=== PATIENT | female | born 1995 | race Caucasian/White ===

== ENCOUNTER → 2019-03-17 | Outpatient (CLI) | payer OTHER ==
[~2019-03-17] MED LIST: MULTI-VITAMIN1 EACH PO; ORILISSA PO; norethindrone PO
--- NOTE | 2019-03-17 09:26 | Diagnostic Imaging Report ---
TECHNIQUE: Magnetic resonance imaging of the LEFT ANKLE was performed WITHOUT injected contrast. COMPARISON: None available. HISTORY: Ankle pain, history of clubfoot FINDINGS: LIGAMENTS: Medial Complex: Deltoid intact. Lateral Complex: Inferior tibiofibular ligaments intact. Attenuation of the anterior talofibular ligament. Calcaneofibular ligament intact. TENDONS: Medial: Attenuation of the posterior tibial tendon. Flexor tendons otherwise intact. Lateral: Peroneal tendons intact. Anterior: Anterior tibial and extensor tendons intact. Achilles: Achilles tendon with irregular morphology and peritendinous edema. BONES: Subchondral edema within the hindfoot. No acute fracture or osteonecrosis. JOINTS: Cartilage: Probable cartilage loss within the hindfoot. Other: Fluid within the joints is within physiologic limits. SOFT TISSUES: Otherwise, unremarkable. IMPRESSION: Abnormal morphology of the Achilles tendon likely sequela of prior partial tear with peritendinous edema. Hindfoot marrow edema likely from altered biomechanics. Signed by: Dr. Alphonso Jordan M.D. on 03/17/2019 9:22 AM
--- NOTE | 2019-04-08 08:55 | Operative Report ---
DATE OF PROCEDURE: SURGEON: Shannan Gordon DPM DAMPER FITTER SURGEON: Vandana Bansal DPM PREOPERATIVE DIAGNOSES: 1. Gastrocnemius equinus, left. 2. Achilles tendinosis, left. POSTOPERATIVE DIAGNOSES: 1. Gastrocnemius equinus, left. 2. Achilles tendinosis, left. PLANNED PROCEDURES: 1. Left gastroc recession. 2. Left Achilles tendon debridement with repair. DAMPER FITTER: Vandana Bansal DPM. ANESTHESIA: General with a postoperative block consisting of 20 mL of 0.5% Marcaine plain. HEMOSTASIS: Pneumatic thigh tourniquet set at 350 mmHg for a total time approximately 30 minutes. MATERIALS: 3-0 Vicryl and 3-0 nylon. ESTIMATED BLOOD LOSS: Less than 10 mL. PATHOLOGY: None. PROCEDURE NOTE: The patient was seen in the preoperative waiting room with the correct procedure and site was identified. The patient was brought to the operating room where general anesthesia was initiated and a well-padded pneumatic tourniquet was placed about the patient's left thigh. The patient was then placed in the prone position on the operating table. The left leg was then scrubbed, prepped, and draped in the usual aseptic manner. The left foot, ankle, and leg was exsanguinated with an Esmarch bandage and the pneumatic thigh tourniquet was inflated to 350 mmHg for a total time of approximately 30 minutes. Attention was directed to the left posterior aspect of the calf just lateral to the gastroc and the aponeurosis. The incision was carried through subcutaneous tissue them from deep or underlying structures. All vital neurovascular structures were identified and retracted medially and laterally. All bleeders were cauterized or ligated as deemed necessary. Incision was carried down to the level of the paratenon, which was entered to allow for good visualization of the aponeurosis. It was noted to be narrow as well as thin compared to the contralateral extremity. Utilizing a #15 blade, a unkkmz-lz-ktsudy type cut were made in the gastroc recession. The foot was then dorsiflexed to allow for approximately 2 to 3 mm gapping within the tendon. The tendon was then reapproximated with simple interrupted sutures of 3-0 Vicryl. The subcutaneous fat and the peritoneal visit were closed in the same layer using a running simple interrupted suture with 3-0 Vicryl. The skin was closed using simple interlocking stitch with 3-0 nylon. Next, attention was directed to the posterior aspect of the patient's Achilles tendon insertion site where a 4 cm linear incision made directly over the bulbous area of the posterior aspect of the Achilles tendon. Incision was carried through subcutaneous tissue them from deep or underlying structures. All vital and neurovascular structures were identified and retracted medially and laterally. All bleeders were cauterized or ligated as deemed necessary. The paratenon was incised as well. The Achilles tendon was reflected up into allow for good visualization of the Achilles tendon scar tissue which was debrided and passed off to the back table. The wound was then copiously irrigated with sterile saline and deep tissue were reapproximated with 3-0 Vicryl. The skin was closed using a simple interrupted suture with 3-0 nylon. All incision sites were dressed with Adaptic, 4x4s, posterior splint, Webril, 4- inch Inderjit wrap, and a 6-inch Inderjit wrap. The patient tolerated the procedure and anesthesia well. The patient was transferred to the postop recovery room with vital signs stable and vascular status intact. The patient was monitored there for a short period time before being sent home with the following written and oral instructions. 1. Keep the dressing clean, dry, and intact. 2. The patient has remained nonweightbearing to avoid any ambulation until being seen in the office. 3. The patient was given the office number to contact us if any problems should arise. Dictated by Vandana Bansal DPM S MULU Cazares (Charley)/MALAIKAL /[id number] LEWIS
== END ==
LOC: MRI 07:39
PROVIDERS: ATTEND Podiatrist Foot & Ankle Surgery
DX: M76.62 Achilles tendinitis, left leg (principal)

== ENCOUNTER → 2019-04-08 | Day surgery (SDC) | payer OTHER ==
[~2019-04-08] MED LIST changes: +ACETAMINOPHEN 1000 MG/100 ML IV ONE; +BUPIVACAINE HCL 0.5% INJ 30 ML VIAL INJ ONE; +CEFAZOLIN SOD 1 GM/NS 50ML 50 ML IV ONE; +DEXAMETHASONE SOD PHOS INJ 4 MG/ML VIAL ONE; +FAMOTIDINE 20 MG/2 ML VIAL IV ONE; +FENTANYL CITRATE/PF 100MCG/2 ML INJ ONE; +KETOROLAC TROMETHAMINE 30 MG/ML VIAL ONE; +MIDAZOLAM HCL 2 MG/2 ML VIAL ONE; +ONDANSETRON HCL INJ 2MG/ML 2ML 2 MG/ML VIAL ONE; +PROPOFOL IV EMULSION 10 MG/ML 20 ML VIAL ONE; +SCOPOLAMINE 1.5 MG PATCH ONE; +SEVOFLURANE INHAL SOLN 250 ML PEN BTL ONE; +SUGAMMADEX SODIUM 200 MG/2 ML VIAL IV ONE
--- OUTSIDE RECORDS SUMMARY | 2019-04-08 05:13 | XMS REPORT | Encounter Summary ---
Author Organization Unknown Address [address] [place] [address] Phone [phone] Reason for Visit Medical Complaint Instructions 1. Acute otitis media amoxicillin 875 mg-potassium clavulanate 125 mg tablet 2. Perforation of tympanic membrane perforated eardrum: care instructions fluticasone 50 mcg/actuation nasal spray,suspension 3. Pain in throat sore throat: care instructions rapid strep group A, throat Discussion Note Pt in NAD, understands all information provided Plan of Care Patient Instructions Pt will take abx as prescribed and keep ears dry avoiding Q-tip use. Please seek care (PCP, Urgent Care, ER) or return to [facility] if symptoms get worse or do not resolve in 1 week. Reminders Provider Appointments None recorded. Lab Rapid Strep Group a, Throat 12/22/2016 [facility] Referral None recorded. Procedures None recorded. Surgeries None recorded. Imaging None recorded. Medications Name Start Date amoxicillin 500 mg capsule amoxicillin 875 mg-potassium clavulanate 125 mg tablet Take 1 tablet every 12 hours by oral route for 10 days. Duraflu 60 mg-20 mg-200 mg-500 mg tablet TK 1 T PO QID FOR 7 DAYS Fioricet fluconazole 150 mg tablet fluticasone 50 mcg/actuation nasal spray,suspension [place] 1 spray twice a day by intranasal route as directed for 14 days. hydrocodone 5 mg-acetaminophen 325 mg tablet ibuprofen 800 mg tablet Microgestin FE /20 (28) 1 mg-20 mcg (21)/75 mg (7) tablet TK 1 T PO QD NuvaRing 0.12 mg -0.015 mg/24 hr vaginal ondansetron 4 mg disintegrating tablet topiramate 50 mg tablet tramadol 50 mg tablet Medications Administered None recorded. Vitals Height Weight BMI Blood Pressure 5 ft 7 in 126 lbs 19.7 100/60 Lab Results Date Name Specimen Result Interpretation Description Value Range Status Address Rapid Strep Group a, Throat Result negative [facility]: [address] [place] [address] Swab Location Left and Right tonsillar pillars [facility]: [facility] Allergies Code Code System Name Reaction Severity Onset NKDA Problems Name Status Onset Date Source Acute Sinusitis Active Encounter Acute Pharyngitis Active Encounter Allergic Rhinitis Active Encounter Influenza-like Symptoms Active Encounter Procedures None recorded. Vaccine List Vaccine Type HPV, quadrivalent 09/06/2012 11/04/2012 02/04/2013 Tdap 09/06/2009 Social History Smoking Status Never Smoker Past Encounters 12/22/2016 Acute Otitis Media; Perforation of Tympanic Membrane; Pain in Throat Ebenezer Owen [employer]OR-C: [address] [facility], [place] [address], Ph. [phone] History of Present Illness Throat-Oral Complaint Reported By: Patient HPI: Location: throat. Quality: sore throat, productive cough, congested. Severity: mild. Duration: 2 days. Context: no sick contacts, no foreign travel, non- smoker. Associated Symptoms: no fever, no headache, no body aches, no sputum production, no shortness of breath, no wheezing, no change in number of pillows needed to sleep at night, no sweats, no significant weight gain, no significant weight loss, no morning cough, no vomiting, no diarrhea, no rash, no nausea, sore throat Ear Complaint Reported By: Patient HPI: Location: right. Quality: throbbing. Severity: intermittent. Duration: started one week ago. Onset/Timing: still present. Context: no sick contacts, no recent swimming/water in ear, no exposure to second hand smoke, no head trauma, not grinding teeth, no recent air travel. Modifying factors: does not hurt to lie on, or pull on ear, does not hurt to chew. Associated Symptoms: no discharge from the ears, no popping noise in the ears, no ringing in the ears, no fever, no chills, no dizziness, no vertigo, no headache, no muscle aches, nose/sinus problems, earache Review of Systems:ROS as noted in the HPI Review of Systems Basic Reported By: Patient Physical Exam Adult Basic, Adult Female Complete, 14-21 Yr Females Reported By: Patient Constitutional: General Appearance: healthy-appearing, well-nourished, well-developed. Level of Distress: NAD. Ambulation: ambulating normally Psychiatric: Mental Status: active and alert, normal affect, normal mood. Orientation: to time, to place, to person Wem-Crpl-Vtzhl-Throat: Ears: no lesions on external ear, no outer ear tenderness, EACs clear, TM erythematous, TM bulging, TM perforated, TM immobile. Hearing: no hearing loss. Nose: no lesions on external nose, nares patent, no septal deviation, nasal passages clear, no sinus tenderness, nasal discharge--rhinorrhea, post nasal drip. Oropharynx: erythema, tonsils enlarged 3+ Lungs: Respiratory effort: no dyspnea, no tachypnea, no use of accessory muscles, no intercostal retractions. Auscultation: breath sounds normal, clear to auscultation, no wheezing, no rales/crackles, no rhonchi, no retractions Cardiovascular: Heart Auscultation: RRR, no murmurs. Apical impulse: not displaced
--- OUTSIDE RECORDS SUMMARY | 2019-04-08 05:13 | XMS REPORT | Encounter Summary ---
Author Organization Unknown Address [address] [place] [address] Phone [phone] Reason for Visit Medical Complaint Instructions 1. Acute pharyngitis sore throat: care instructions 2. Influenza-like symptoms rapid strep group A, throat Duraflu 60 mg-20 mg-200 mg-500 mg tablet influenza (flu): care instructions Discussion Note I provided /reviewed [facility] handout Plan of Care Patient Instructions *Stay home and limit contact with others for the next 5 days. *Monitor temperature regularly for the next few days. *Practice good hand hygiene and wear a face mask if you must go out in public. *Drink plenty of fluids and get lots of rest. *May use acetaminophen (ex: Tylenol) or ibuprofen (ex: Motrin) as indicated on package for pain, bodyaches, and/or fever. *Do not use any products khop-fdw-bisqroy that contain acetaminophen (Tylenol) as the Duraflu tabs already have acetaminophen in them. *Take medication(s) as prescribed for the indicated length of time. If no improvement in 3-5 days, or if you develop new or worsening symptoms, follow up with your usual healthcare provider or go to the nearest emergency or urgent care center if after hours or on weekends. Reminders Provider Appointments None recorded. Lab Rapid Strep Group a, Throat 05/08/2016 [facility] Referral None recorded. Procedures None recorded. Surgeries None recorded. Imaging None recorded. Medications Name Start Date Duraflu 60 mg-20 mg-200 mg-500 mg tablet Take 1 tablet 4 times a day by oral route for 7 days. Fioricet Medications Administered None recorded. Vitals Height Weight BMI Blood Pressure 5 ft 7 in 130 lbs 20.4 102/68 Lab Results None recorded. Allergies Name Reaction Severity Onset NKDA Problems Name Status Onset Date Source Acute Sinusitis Active Encounter Acute Pharyngitis Active Encounter Allergic Rhinitis Active Encounter Influenza-like Symptoms Active Encounter Procedures None recorded. Vaccine List Vaccine Type HPV, quadrivalent 09/06/2012 11/04/2012 02/04/2013 Tdap 09/06/2009 Social History Smoking Status Never Smoker Past Encounters 05/08/2016 Acute Pharyngitis; Influenza-like Symptoms Arthur SandhuRAMIN stricklandP: [address] [place] [address], Ph. History of Present Illness Jrklv-Suvzegywih-Pxeprls Reported By: Patient HPI: Location: head/sinuses. Quality: sore throat, dry cough. Duration: 3days. Severity: moderate. Onset/Timing: gradual. Context: no sick contacts, no foreign travel, non-smoker. Modifying factors: OTC medication. Associated Symptoms: no sputum production, no shortness of breath, no wheezing, no change in number of pillows needed to sleep at night, no sweats, no significant weight gain, no significant weight loss, no vomiting, no diarrhea, no rash, no nausea, morning cough, sore throat; Chills Review of Systems:ROS as noted in the HPI Review of Systems Basic Reported By: Patient Physical Exam Adult Basic, Adult Female Complete, 14-21 Yr Females Constitutional: General Appearance: healthy-appearing, well-nourished, well-developed. Level of Distress: NAD. Ambulation: ambulating normally Psychiatric: Mental Status: active and alert, normal affect, normal mood. Orientation: to time, to place, to person Utf-Cqlj-Wfkbh-Throat: Ears: no lesions on external ear, no outer ear tenderness, EACs clear, TMs clear, TM mobility normal. Hearing: no hearing loss. Nose: no lesions on external nose, nares patent, no septal deviation, nasal passages clear, no sinus tenderness, no nasal discharge. Lips, Teeth, and Gums: no mouth or lip ulcers, no bleeding gums, normal dentition. Oropharynx: moist mucous membranes, no erythema, no exudates, tonsils not enlarged Lungs: Respiratory effort: no dyspnea, no tachypnea, no use of accessory muscles, no intercostal retractions. Auscultation: breath sounds normal, clear to auscultation, no wheezing, no rales/crackles, no rhonchi, no retractions Cardiovascular: Heart Auscultation: RRR, no murmurs, no gallops, no rub, normal femoral pulse
--- OUTSIDE RECORDS SUMMARY | 2019-04-08 05:13 | XMS REPORT | Encounter Summary ---
Author Organization Unknown Address [address] [place] [address] Phone [phone] Reason for Visit Medical Complaint Instructions 1. Acute sinusitis rapid strep group A, throat sinusitis: care instructions fluticasone 50 mcg/actuation nasal spray,suspension Bromfed DM 2 mg-30 mg-10 mg/5 mL syrup Discussion Note: None recorded. Plan of Care Patient Instructions Drink plenty of fluids. Get lots of rest and appropriate sleep. Inhaling steam may help to ease congestion of the sinuses. Temporary use of an hfia-yjh-zkcpnhx nasal spray may help relieve congestion, but these should not be used for more than 3 days at a time. See your doctor if your symptoms last more than a few days. Antibiotics may be prescribed if bacterial sinusitis is suspected. It is important to take the full course of antibiotics as prescribed. Do not skip doses or stop taking the medication when you begin to feel better. Seek medical attention immediately if you develop a high fever, stiff neck, severe headache, tender swelling near the eyes, or changes in your mental status such as confusion or delirium. Reminders Provider Appointments None recorded. Lab Rapid Strep Group a, Throat 06/10/2017 [facility] Referral None recorded. Procedures None recorded. Surgeries None recorded. Imaging None recorded. Medications Name Start Date amoxicillin 500 mg capsule amoxicillin 875 mg-potassium clavulanate 125 mg tablet TK 1 T PO Q 12 H Bromfed DM 2 mg-30 mg-10 mg/5 mL syrup Take 10 mL every 4-6 hours by oral route as needed for 3 days. Duraflu 60 mg-20 mg-200 mg-500 mg tablet TK 1 T PO QID FOR 7 DAYS estradiol 2 mg tablet fluconazole 150 mg tablet fluticasone 50 mcg/actuation nasal spray,suspension [place] 1 spray twice a day by intranasal route as directed for 7 days. ibuprofen 800 mg tablet Menveo L-L-L-W-135-Dip (PF) 10 mcg-5 mcg/0.5 mL intramuscular kit ADM 0.5ML IM UTD Microgestin FE 1/20 (28) 1 mg-20 mcg (21)/75 mg (7) tablet TK 1 T PO QD Nexplanon 68 mg subdermal implant norethindrone acetate 5 mg tablet NuvaRing 0.12 mg -0.015 mg/24 hr vaginal ondansetron 4 mg disintegrating tablet Zovia 1/50E (28) 1 mg-50 mcg tablet TK 1 T PO D Medications Administered None recorded. Vitals Height Weight BMI Blood Pressure 5 ft 7 in 130 lbs 20.4 kg/m2 128/91 mm[Hg] Lab Results None recorded. Allergies Code Code System Name Reaction Severity Status Onset NKDA Problems Name Status Onset Date Source Acute Sinusitis Active Encounter Acute Pharyngitis Active Encounter Allergic Rhinitis Active Encounter Influenza-like Symptoms Active Encounter Procedures None recorded. Vaccine List Vaccine Type HPV, quadrivalent 09/07/2012 11/05/2012 02/05/2013 Tdap 09/07/2009 Social History Smoking Status Never Smoker Past Encounters 06/10/2017 Acute Sinusitis RAMIN GaytanP-C: [address] [place] [address], Ph. History of Present Illness Tnrhd-Xsfbugsftu-Mfgpbga Reported By: Patient HPI: Location: head/sinuses. Quality: sore throat. Duration: 5days. Severity: moderate. Onset/Timing: sudden. Context: no foreign travel, non-smoker, sick contact. Modifying factors: OTC medication. Associated Symptoms: no vomiting, no diarrhea, no fever, headache Review of Systems Basic Reported By: Patient Constitutional: Constitutional: no fever Eyes: Eyes: no eye complaints Rwra-Ivit-Oxdxl-Throat: Ears: no ear complaints. Nose: nose/sinus problems. Mouth/Throat: sore throat Cardiovascular: Cardiovascular: no chest pain, no shortness of breath Respiratory: Respiratory: no cough, no wheezing Gastrointestinal: Gastrointestinal: no abdominal pain, no vomiting / diarrhea Genitourinary: Genitourinary: no urinary complaints, no discharge Musculoskeletal: Musculoskeletal: no muscle aches, no muscle weakness Neurologic: Neurologic: headache Physical Exam Adult Basic, Adult Female Complete, 14-21 Yr Females Reported By: Patient Constitutional: General Appearance: healthy-appearing, well-nourished, well-developed. Level of Distress: NAD. Ambulation: ambulating normally Psychiatric: Mental Status: active and alert, normal affect, normal mood. Orientation: to time, to place, to person Fky-Bhft-Rspda-Throat: Ears: no lesions on external ear, no outer ear tenderness, EACs clear, TMs clear. Nose: no lesions on external nose, nares patent, no septal deviation, nasal passages clear, sinus tenderness, post nasal drip. Oropharynx: moist mucous membranes, no erythema, no exudates, tonsils not enlarged Neck: Lymph Nodes: no cervical LAD, no supraclavicular LAD, no axillary LAD, no inguinal LAD Lungs: Respiratory effort: no dyspnea, no tachypnea, no use of accessory muscles, no intercostal retractions. Auscultation: breath sounds normal, clear to auscultation, no wheezing, no rales/crackles, no rhonchi, no retractions Cardiovascular: Heart Auscultation: RRR, no murmurs, no gallops, no rub, normal femoral pulse. Rate and rhythm: regular Abdomen: Bowel Sounds: normal. Inspection and Palpation: soft, non-distended, no tenderness, no guarding, no rebound tenderness, no masses, no CVA tenderness. Liver: non-tender, no hepatomegaly. Spleen: non-tender, no splenomegaly
--- OUTSIDE RECORDS SUMMARY | 2019-04-08 05:13 | XMS REPORT | Continuity of Care Document ---
Author Author [facility] Address Unknown Phone Unavailable Care Team Providers Care Storage Administrator Name Role Phone [employer] Unavailable Unavailable Problems Problem Status Onset Date Classification Date Reported Comments Source Acute sinusitis 06/10/2017 Diagnosis 06/10/2017 [facility] Acute otitis media 12/22/2016 Diagnosis 12/22/2016 [facility] Perforation of tympanic membrane 12/22/2016 Diagnosis 12/22/2016 [facility] Pain in throat 12/22/2016 Diagnosis 12/22/2016 [facility] Acute pharyngitis 05/08/2016 Diagnosis 05/08/2016 [facility] Influenza-like symptoms 05/08/2016 Diagnosis 05/08/2016 [facility] Acute Sinusitis Problem 06/10/2017 [facility] Acute Pharyngitis Problem 06/10/2017 [facility] Allergic Rhinitis Problem 06/10/2017 [facility] Influenza-like Symptoms Problem 06/10/2017 [facility] Medications Medication Details Route Status Patient Instructions Ordering Provider Order Date Source Acetaminophen 500 MG / Dextromethorphan Hydrobromide 20 MG / Guaifenesin 200 MG / Pseudoephedrine Hydrochloride 60 MG Oral Tablet Duraflu 60 mg-20 mg-200 mg-500 mg tablet TK 1 T PO QID FOR 7 DAYS Active [facility] Fioricet Fioricet Active [facility] Amoxicillin 500 MG Oral Capsule amoxicillin 500 mg capsule Active [facility] Amoxicillin 875 MG / Clavulanate 125 MG Oral Tablet amoxicillin 875 mg-potassium clavulanate 125 mg tablet TK 1 T PO Q 12 H Active [facility] Brompheniramine Maleate 0.4 MG/ML / Dextromethorphan Hydrobromide 2 MG/ML / Pseudoephedrine Hydrochloride 6 MG/ML Oral Solution [Bromfed DM] Bromfed DM 2 mg-30 mg-10 mg/5 mL syrup Take 10 mL every 4-6 hours by oral route as needed for 3 days. Active [facility] Estradiol 2 MG Oral Tablet estradiol 2 mg tablet Active [facility] Fluconazole 150 MG Oral Tablet fluconazole 150 mg tablet Active [facility] Fluticasone propionate 0.05 MG/ACTUAT Metered Dose Nasal [place] fluticasone 50 mcg/actuation nasal spray,suspension [place] 1 spray twice a day by intranasal route as directed for 7 days. Active [facility] Ibuprofen 800 MG Oral Tablet ibuprofen 800 mg tablet Active [facility] 0.5 ML Neisseria meningitidis serogroup A oligosaccharide diphtheria [id number] protein conjugate vaccine 0.02 MG/ML / Neisseria meningitidis serogroup C oligosaccharide diphtheria [id number] protein conjugate vaccine 0.01 MG/ML / Neisseria meningitidis serogroup W-135 oligosaccharide diphtheria [id number] protein conjugate vaccine 0.01 MG/ML / Neisseria meningitidis serogroup Y oligosaccharide diphtheria [id number] protein conjugate vaccine 0.01 MG/ML Injection [Menveo] Menveo X-Q-Z-W-135-Dip (PF) 10 mcg-5 mcg/0.5 mL intramuscular kit ADM 0.5ML IM UTD Active [facility] Microgestin FE 09/26 () 1 mg-20 mcg (21)/75 mg (7) tablet Microgestin FE 09/26 () 1 mg-20 mcg (21)/75 mg (7) tablet TK 1 T PO QD Active [facility] Etonogestrel 68 MG Drug Implant [Nexplanon] Nexplanon 68 mg subdermal implant Active [facility] norethindrone acetate 5 MG Oral Tablet norethindrone acetate 5 mg tablet Active [facility] 21 DAY Ethinyl Estradiol 0.363958 MG/HR / Etonogestrel 0.005 MG/HR Vaginal Ring [NuvaRing] NuvaRing 0.12 mg -0.015 mg/24 hr vaginal Active [facility] Ondansetron 4 MG Disintegrating Oral Tablet ondansetron 4 mg disintegrating tablet Active [facility] Zovia 1/50E (28) 1 mg-50 mcg tablet [place] 1/50E (28) 1 mg-50 mcg tablet TK 1 T PO D Active [facility] Acetaminophen 325 MG / Hydrocodone Bitartrate 5 MG Oral Tablet hydrocodone 5 mg-acetaminophen 325 mg tablet Active [facility] topiramate 50 MG Oral Tablet topiramate 50 mg tablet Active [facility] tramadol hydrochloride 50 MG Oral Tablet tramadol 50 mg tablet Active [facility] Allergies, Adverse Reactions, Alerts No Known Medication Allergies Immunizations Immunization Date Given Site Status Last Updated Comments Source HPV, quadrivalent 02/05/2013 completed [facility] HPV, quadrivalent 11/05/2012 completed [facility] HPV, quadrivalent 09/07/2012 completed [facility] Tdap 09/07/2009 completed [facility] Results Order Name Results Value Reference Range Date Interpretation Comments Source RESULT negative 06/10/2017 [facility] SWAB LOCATION Left and Right tonsillar pillars 06/10/2017 [facility] RESULT negative 12/22/2016 [facility] SWAB LOCATION Left and Right tonsillar pillars 12/22/2016 [facility] Pathology Reports No Data Provided for This Section Diagnostic Reports No Data Provided for This Section Consultation Notes No Data Provided for This Section Discharge Summaries No Data Provided for This Section History and Physicals No Data Provided for This Section Vital Signs Vital Sign Value Date Comments Source Diastolic (mm Hg) 91 06/10/2017 [facility] Height 67 06/10/2017 [facility] Systolic (mm Hg) 128 06/10/2017 [facility] Weight 130 06/10/2017 [facility] Diastolic (mm Hg) 60 12/22/2016 [facility] Height 67 12/22/2016 [facility] Systolic (mm Hg) 100 12/22/2016 [facility] Weight 126 12/22/2016 [facility] Diastolic (mm Hg) 68 05/08/2016 [facility] Height 67 05/08/2016 [facility] Systolic (mm Hg) 102 05/08/2016 [facility] Weight 130 05/08/2016 [facility] Encounters Location Location Details Encounter Type Encounter Number Reason For Visit Attending Provider ADM Date DC Date Status Source [place] - [facility] - [id number] Darlynisochi Ayde, URGENT CARE PHYSICIAN: [address] [place] [address], Ph. [id number] Darlynisochi Alimole 05/08/2016 [facility] [place] [id number] Darlynisochi Alimole, URGENT CARE PHYSICIAN: [address] [place] [address], Ph. [id number] Kosisochi Alimole 05/08/2016 [facility] [place] [facility] [id number] Ebenezer Owen, NET DEVELOPER-C: [address] [facility], [place] [address], Ph. [phone] [id number] Heidijean-paulcorine Brayden 12/22/2016 [facility] [place] [id number], URGENT CARE PHYSICIAN-C: [address], [place] [id number], Ph. [id number] Nizar Nayani 06/10/2017 [facility] [place] [id number]-C: [address], [place] [id number], Ph. [id number] Nizar Nayani 06/10/2017 [facility] [place] [id number]ARE PHYSICIAN-C: [address], [place] [id number], Ph. [id number] Nizar Nayani 06/10/2017 [facility] Procedures No Data Provided for This Section Assessment and Plan No Data Provided for This Section Plan of Care No Data Provided for This Section Social History Social History Date Source Smoking Status Never Smoker 10/27/2014 [facility] Family History No Data Provided for This Section Advance Directives No Data Provided for This Section Functional Status No Data Provided for This Section
--- OUTSIDE RECORDS SUMMARY | 2019-04-08 05:13 | XMS REPORT | Encounter Summary ---
Author Organization Unknown Address [address] [place] [address] Phone [phone] Reason for Visit Medical Complaint Instructions 1. [...] of the sinuses. Temporary use of an yaui-vba-bckzcqb nasal spray may help relieve congestion, but [...] mg tablet fluticasone 50 mcg/actuation nasal spray,suspension [place] 1 spray twice a day by intranasal route as directed for 7 days. ibuprofen 800 mg tablet Menveo J-U-V-W-135-Dip (PF) 10 mcg-5 mcg/0.5 mL intramuscular kit [...] lbs 20.4 kg/m2 128/91 mm[Hg] Lab Results Date Name Specimen Result Interpretation Description Value Range Status Address Rapid Strep Group a, Throat Result negative [facility]: [address] [place] [address] Swab Location Left and Right tonsillar pillars [facility]: [address] [place] [address] Allergies Code Code System Name Reaction Severity Status Onset NKDA Problems Name Status Onset Date Source Acute Sinusitis Active Encounter Acute Pharyngitis Active Encounter Allergic Rhinitis Active Encounter Influenza-like Symptoms Active Encounter Procedures None recorded. Vaccine List Vaccine Type HPV, quadrivalent 09/07/2012 11/05/2012 02/05/2013 Tdap 09/07/2009 Social History Smoking Status Never Smoker Past Encounters 06/10/2017 Acute Sinusitis Portillo Davalos MANAGER SIGN-C: [address] [place] [address], Ph. History of Present Illness Njghm-Grdmpbvbyl-Vibgcws Reported By: Patient HPI: Location: head/sinuses. Quality: sore throat. Duration: 5days. Severity: moderate. Onset/Timing: sudden. Context: no foreign travel, non-smoker, sick contact. Modifying factors: OTC medication. Associated Symptoms: no vomiting, no diarrhea, no fever, headache Review of Systems Basic Reported By: Patient Constitutional: Constitutional: no fever Eyes: Eyes: no eye complaints Witz-Tosy-Efcqd-Throat: Ears: no ear complaints. Nose: nose/sinus problems. [...] Orientation: to time, to place, to person Mfa-Cqot-Cmvrj-Throat: Ears: no lesions on external ear, no [...]
--- OUTSIDE RECORDS SUMMARY | 2019-04-08 05:13 | XMS REPORT | Encounter Summary ---
Author Organization Unknown Address [address] [place] [address] Phone [phone] Reason for Visit Medical Complaint Instructions 1. Acute pharyngitis sore throat: care instructions 2. Influenza-like symptoms rapid strep group A, throat Duraflu 60 mg-20 mg-200 mg-500 mg tablet influenza (flu): care instructions Discussion Note I provided /reviewed [facility] handout Plan of Care Patient Instructions *Stay [...] and/or fever. *Do not use any products kifu-cpg-tvwrsji that contain acetaminophen (Tylenol) as the Duraflu [...] Lab Rapid Strep Group a, Throat 05/08/2016 [facility] Referral None recorded. Procedures None recorded. [...] Pharyngitis; Influenza-like Symptoms Arthur SandhuRAMIN stricklandP: [address] [place] [address], Ph. History of Present Illness Yeusq-Wwcpkueiif-Jtobwmt Reported By: Patient HPI: Location: head/sinuses. Quality: [...] Orientation: to time, to place, to person Qgs-Fdqg-Qyluy-Throat: Ears: no lesions on external ear, no [...]
--- OUTSIDE RECORDS SUMMARY | 2019-04-08 05:13 | XMS REPORT ---
Author Author [facility] Address Unknown Phone Unavailable Care Team Providers Care Comb Fixer Name Role Phone Shannan GORDON Unavailable Unavailable DR OSEI BROWN Unavailable Unavailable Problems This patient has no known problems. Allergies, Adverse Reactions, Alerts This patient has no known allergies or adverse reactions. Medications This patient has no known medications. Encounters Start Date/Time End Date/Time Encounter Type Admission Type Attending Clinicians Care Facility Care Department Encounter ID 2017-10-30 13:29:00 2017-11-30 23:59:00 Outpatient C OSEI BROWN [facility] PT [id number] Results Test Description Test Time Test Comments Text Results Atomic Results Result Comments MRI ANKLE LEFT WO 2019-03-17 09:17:00 [place] [address] Patient Name: BLANCA CAROLINA MR #: [id number] : 1995 Age/Sex: 23/F Req #: [id number] Adm Physician: Ordered by: Shannan GORDON DP Report #: [id number] Location: MRI Room/Bed: Procedure: [id number] MRI/MRI ANKLE LEFT WO Exam Date: Exam Time: REPORT STATUS: Signed TECHNIQUE: Magnetic resonance imaging of the LEFT ANKLE was perform ed WITHOUT injected contrast. COMPARISON: None available. HISTORY: Ankle pain, history of clubfoot FINDINGS: LIGAMENTS: Medial Complex: Deltoid intact. Lateral Complex: Inferior tibiofibular ligaments intact. Attenuation of the anterior talofibular ligament. Calcaneofibular ligament intact. TENDONS: Medial: Attenuation of the posterior tibial tendon. Flexor tendons otherwise intact. Lateral: Peroneal tendons intact. Anterior: Anterior tibial and extensor tendons intact. Achilles: Achilles tendon with irregular morphology and peritendinous edema. BONES: Subchondral edema within the hindfoot. No acute fracture or osteonecrosis. JOINTS: Cartilage: Probable cartilage loss within the hindfoot. Other: Fluid within the joints is within physiologic limits. SOFT TISSUES: Otherwise, unremarkable. IMPRESSION: Abnormal morphology of the Achilles tendon likely sequela of prior partial tear with peritendinous edema. Hindfoot marrow edema likely from altered biomechanics. Signed by: Dr. Mary Arvizu M.D. on 03/17/2019 9:22 AM Dictated By: MARY ARVIZU MD 1 Transcribed By: IDA on 03/17/19921 COPY TO: Shannan GORDON DPM
--- OUTSIDE RECORDS SUMMARY | 2019-04-08 05:13 | XMS REPORT | Encounter Summary ---
Author Organization Unknown Address [address] [place] [address] Phone [phone] Reason for Visit Medical Complaint Instructions 1. [...] of the sinuses. Temporary use of an utqf-ggh-iuhzzly nasal spray may help relieve congestion, but [...] mg tablet fluticasone 50 mcg/actuation nasal spray,suspension [place] 1 spray twice a day by intranasal route as directed for 7 days. ibuprofen 800 mg tablet Menveo W-F-C-W-135-Dip (PF) 10 mcg-5 mcg/0.5 mL intramuscular kit [...] 06/10/2017 Acute Sinusitis RAMIN GaytanP-C: [address] [place] [address], Ph. History of Present Illness Tekwl-Kzmnfwkjuz-Qdpfkle Reported By: Patient HPI: Location: head/sinuses. Quality: sore throat. Duration: 5days. Severity: moderate. Onset/Timing: sudden. Context: no foreign travel, non-smoker, sick contact. Modifying factors: OTC medication. Associated Symptoms: no vomiting, no diarrhea, no fever, headache Review of Systems Basic Reported By: Patient Constitutional: Constitutional: no fever Eyes: Eyes: no eye complaints Gsiq-Lmdw-Xopnm-Throat: Ears: no ear complaints. Nose: nose/sinus problems. [...] Orientation: to time, to place, to person Wfn-Exyb-Fxruv-Throat: Ears: no lesions on external ear, no [...]
[2019-04-08 08:35] VITALS: BP 130/94
--- NOTE | 2019-04-08 08:55 | Operative Report ---
DATE OF PROCEDURE: 04/08/2019 SURGEON: Angeline Gordon DPM PREOPERATIVE DIAGNOSES: 1. Gastrocnemius equinus, left. 2. Achilles tendinosis, left. POSTOPERATIVE DIAGNOSES: 1. Gastrocnemius equinus, left. 2. Achilles tendinosis, left. PLANNED PROCEDURES: 1. Left gastroc recession. 2. Left Achilles tendon debridement with repair. JOURNEYMAN POWER PLANT OPERATOR: Vandana Bansal DPM. ANESTHESIA: General with a postoperative block consisting of 20 mL of 0.5% Marcaine plain. HEMOSTASIS: Pneumatic thigh tourniquet set at 350 mmHg for a total time approximately 30 minutes. MATERIALS: 3-0 Vicryl and 3-0 nylon. ESTIMATED BLOOD LOSS: Less than 10 mL. PATHOLOGY: None. PROCEDURE NOTE: The patient was seen in the preoperative waiting room with the correct procedure and site was identified. The patient was brought to the operating room where general anesthesia was initiated and a well-padded pneumatic tourniquet was placed about the patient's left thigh. The patient was then placed in the prone position on the operating table. The left leg was then scrubbed, prepped, and draped in the usual aseptic manner. The left foot, ankle, and leg was exsanguinated with an Esmarch bandage and the pneumatic thigh tourniquet was inflated to 350 mmHg for a total time of approximately 30 minutes. Attention was directed to the left posterior aspect of the calf just lateral to the gastroc and the aponeurosis. The incision was carried through subcutaneous tissue them from deep or underlying structures. All vital neurovascular structures were identified and retracted medially and laterally. All bleeders were cauterized or ligated as deemed necessary. Incision was carried down to the level of the paratenon, which was entered to allow for good visualization of the aponeurosis. It was noted to be narrow as well as thin compared to the contralateral extremity. Utilizing a #15 blade, a vonqor-xt-vycsum type cut were made in the gastroc recession. The foot was then dorsiflexed to allow for approximately 2 to 3 mm gapping within the tendon. The tendon was then reapproximated with simple interrupted sutures of 3-0 Vicryl. The subcutaneous fat and the peritoneal visit were closed in the same layer using a running simple interrupted suture with 3-0 Vicryl. The skin was closed using simple interlocking stitch with 3-0 nylon. Next, attention was directed to the posterior aspect of the patient's Achilles tendon insertion site where a 4 cm linear incision made directly over the bulbous area of the posterior aspect of the Achilles tendon. Incision was carried through subcutaneous tissue them from deep or underlying structures. All vital and neurovascular structures were identified and retracted medially and laterally. All bleeders were cauterized or ligated as deemed necessary. The paratenon was incised as well. The Achilles tendon was reflected up into allow for good visualization of the Achilles tendon scar tissue which was debrided and passed off to the back table. The wound was then copiously irrigated with sterile saline and deep tissue were reapproximated with 3-0 Vicryl. The skin was closed using a simple interrupted suture with 3-0 nylon. All incision sites were dressed with Adaptic, 4x4s, posterior splint, Webril, 4- inch Inderjit wrap, and a 6-inch Inderjit wrap. The patient tolerated the procedure and anesthesia well. The patient was transferred to the postop recovery room with vital signs stable and vascular status intact. The patient was monitored there for a short period time before being sent home with the following written and oral instructions. 1. Keep the dressing clean, dry, and intact. 2. The patient has remained nonweightbearing to avoid any ambulation until being seen in the office. 3. The patient was given the office number to contact us if any problems should arise. MULU Jarquin/KERI /[id number] LEWIS
== END | disposition home or self-care (01) ==
LOC: OR 05:09
PROVIDERS: ATTEND Podiatrist Foot & Ankle Surgery
DX: M76.62 Achilles tendinitis, left leg (principal); M21.6X2 Other acquired deformities of left foot
CPT/HCPCS: 27650; 27687; 81025; J0131; J0690; J1100; J1885; J2250; J2405; J2704; J3010